=== PATIENT | male | born 2000 | race Two or more races ===

== ENCOUNTER → 2024-12-05 | Outpatient (CLI) | payer MEDICAID, SELFPAY ==
--- NOTE | 2024-12-05 10:05 | XR_ITS ---
Examination: Testicular sonography complete TECHNIQUE: Grayscale sonographic images testes, assessment arterial inflow venous outflow Doppler spectral analysis carful analysis Date and time: December 05, 2024 1015 hours INDICATIONS: History undescended testicles and testicular pain one year FINDINGS: Right testis 3.5 cm epididymis 12 mm Undescended testicle Decreased arterial flow which may relate to the in distended appearance of the testicle No testicular mass Left testis 5.0 cm renal cortex 2.9 cm Arterial flow testicle No testicular mass Mild hydrocele IMPRESSION: Minimal flow to the right testicle which may relate to the in distended appearance of the right testicle Recommend short-term follow-up, 24 hour, right testicular sonogram
== END | disposition home or self-care (01) ==
PROVIDERS: PCP Nurse Practitioner Family; Referring Provider Nurse Practitioner Family; Visit Provider Nurse Practitioner Family
DX: N46.01 Organic azoospermia (principal); Q53.9 Undescended testicle, unspecified
CPT/HCPCS: 76870

== ENCOUNTER → 2025-04-28 | Outpatient (CLI) | payer MEDICAID, SELFPAY ==
--- NOTE | 2025-04-28 16:38 | XR_ITS ---
Examination: Lumbar spine, 5 views Technique: Lumbar spine AP, lateral, coned lateral lower lumbar spine, bilateral obliques 5 views Exam date and time: April 28, 2025, 1645 hours INDICATIONS: Low back pain beginning 2 months ago. FINDINGS: Satisfactory alignment lumbar vertebral bodies No lumbar fracture No spondylolisthesis Mild disc narrowing to moderate disc narrowing L5-S1 IMPRESSION: Mild to moderate degenerative disc disease L5-S1
== END | disposition home or self-care (01) ==
PROVIDERS: PCP Nurse Practitioner Family; Referring Provider Nurse Practitioner Family; Visit Provider Nurse Practitioner Family
DX: M51.370 Other intervertebral disc degeneration, lumbosacral region with discogenic back pain only (principal)
CPT/HCPCS: 72110